=== PATIENT | male | born 1930 | race Caucasian/White ===

== ENCOUNTER 2018-04-10 09:22 | Day surgery (SDC) ==
[2018-04-10] MEDS ORDERED: AK-DILATE 10% OPTH SOL OP ONE (10:30)
[2018-04-10] MEDS: TETRACAINE 0.5% UNIT-DOSE OP PRN ×2 (10:30→11:02)
[2018-04-10] MEDS: BETADINE OPTH PREP OP PRN ×2 (10:30→11:02)
[2018-04-10] MEDS: CYCLOGYL 2% OPTH OP PRN ×3 (10:31→10:41)
[2018-04-10] MEDS ORDERED: BRIMONIDINE TARTRATE 0.2% OPTH SOL OP PRN (10:40)
[2018-04-10] MEDS ORDERED: LIDOCAINE 1%/PHENYLEPHRINE 1.5% BSS (SURGERY) INTRAOCULA ONE (10:40)
[2018-04-10] MEDS ORDERED: BSS WITH EPINEPHRINE OP ONE (10:40)
[2018-04-10] MEDS ORDERED: ZOFRAN 4 MG/2 ML IVP ONE (10:40)
[2018-04-10] MEDS ORDERED: LIDOCAINE 1% 20 ML MDV ID STA (10:40)
[2018-04-10] MEDS ORDERED: DEX-MOXI-KETOR OPTH INJ 1/0.5/0.4 MG/ML IO ONE (10:40)
[2018-04-10 10:53] VITALS: TEMP 98.2
[2018-04-10] MEDS ORDERED: SUBLIMAZE ONE (11:00)
[2018-04-10] MEDS ORDERED: VERSED ONE (11:00)
[2018-04-11 13:12] VITALS: BP 123/67
== END 2018-04-10 12:05 | disposition home or self-care (01) ==
LOC: SURG 09:22
PROVIDERS: ATTEND Ophthalmology
DX: H25.813 Combined forms of age-related cataract, bilateral (principal)

== ENCOUNTER 2018-04-24 09:05 | Day surgery (SDC) ==
[2018-04-24] MEDS: BETADINE OPTH PREP OP PRN ×2 (09:40→10:07)
[2018-04-24] MEDS: TETRACAINE 0.5% UNIT-DOSE OP PRN ×2 (09:40→10:07)
[2018-04-24] MEDS: CYCLOGYL 2% OPTH OP PRN ×3 (09:41→09:51)
[2018-04-24] MEDS ORDERED: LIDOCAINE 1% 20 ML MDV ID STA (09:53)
[2018-04-24] MEDS ORDERED: BRIMONIDINE TARTRATE 0.2% OPTH SOL OP PRN (09:53)
[2018-04-24] MEDS ORDERED: LIDOCAINE 1%/PHENYLEPHRINE 1.5% BSS (SURGERY) INTRAOCULA ONE (09:53)
[2018-04-24] MEDS ORDERED: BSS WITH EPINEPHRINE OP ONE (09:53)
[2018-04-24] MEDS ORDERED: DEX-MOXI-KETOR OPTH INJ 1/0.5/0.4 MG/ML IO ONE (09:53)
[2018-04-24] MEDS ORDERED: ZOFRAN 4 MG/2 ML IVP ONE (09:53)
[2018-04-24 10:06] VITALS: TEMP 98.6
[2018-04-24] MEDS ORDERED: ROBINOL ONE (10:19)
[2018-04-24] MEDS ORDERED: VERSED ONE (10:19)
[2018-04-25 10:46] VITALS: BP 116/56
== END 2018-04-24 11:45 | disposition home or self-care (01) ==
LOC: SURG 09:05
PROVIDERS: ATTEND Ophthalmology
DX: H25.811 Combined forms of age-related cataract, right eye (principal)